=== PATIENT | male | born 1960 | race Caucasian/White ===

== ENCOUNTER → 2024-08-22 11:08 | Outpatient (REF) | payer OTHER, SELFPAY | LOC: HWRAD 11:08 | PROVIDERS: ATTENDING PHYSICIAN Student in an Organized Health Care Education/Training Program | DX: Z00.00 Encounter for general adult medical examination without abnormal findings (principal); Z85.46 Personal history of malignant neoplasm of prostate; M54.50 Low back pain, unspecified | CPT/HCPCS: 72110 ==